=== PATIENT | male | born 1980 | race Caucasian/White ===

== ENCOUNTER 2024-10-11 13:34 | Day surgery (SDC) | payer BC, SELFPAY ==
[2024-10-11] VITALS (11 sets, daily range): BP systolic 122–159; BP diastolic 62–85; BMI 26.2
--- NOTE | 2024-10-11 08:53 | ED.GENMED ---
History of Present Illness
General
Chief Complaint: Chest Pain
Time Seen by Provider: 10/11/24 08:39
History of Present Illness
History of Present Illness:
Patient is a 44-year-old male with no reported chronic medical problems here today for evaluation of approximately 7 hours of sudden onset of epigastric abdominal discomfort that woke him up from his sleep this morning. Patient reports the pain
being moderate in nature. There is mild radiation along the bilateral upper quadrants. There is slight radiation into the lower aspect of the middle chest wall. No noted difficulty breathing/shortness of breath No lower abdominal pain. No
urinary symptoms. No back pain. No fevers. he has had vomiting x 2. No diarrhea. He denies excessive NSAID use. He does report a history of alcohol use with last drinking yesterday. He reports having 5 drinks in total. He does report
drinking approximately 4-5 times per week and drinks several beverages at a time. He has never had similar symptoms previously.
Review of Systems
Review of Systems
All Other Systems: ROS reviewed and negative except as documented in HPI and ROS
Phy Exam
Physical Exam
Physical Exam:
GENERAL: Alert , in no apparent distress
EYE: pupils equal and reactive
NECK: Supple
ENT: o/p clr, mmm.
CARDIAC: Regular rate and rhythm.
LUNGS: Clear breath sounds bilaterally, no acute respiratory distress, no wheezes/rales/rhonchi
ABDOMEN: Soft, there is significant tenderness along the epigastrium without rebound or guarding. There is no tenderness elsewhere. No overlying skin changes or ecchymosis.
NEUROLOGICAL: Alert and oriented, no focal neuro deficits
SKIN: Warm and dry, skin intact.
MUSCULOSKELETAL: No edema, well perfused.
PSYCH: Normal and appropriate interaction.
Scores
Heart Score for Chest Pain Patients
STEMI patient?: No
History: Slightly or Non-Suspicious
ECG: Normal
Age: </= 45 years
Risk Factors: No Risk Factors
Troponin: </= Normal Limit
Heart Score for Chest Pain Patients: 0
Heart Score Risk: 2.5% MACE over next 6 weeks
Course
Orders/Labs/Results
Orders:
Orders
10/11/24 08:10
Electrocardiogram (*1) Urgent
Reason for Study: Chest Pain
EKG- Treatment ONCE
10/11/24 08:56
CT Abd/pelvis W Iv Cont Urgent
Comment:
Reason For Exam: epigastric pain,vomiting
0.9% Sodium Chloride 1000 ml [Nss] 1,000 ml IV BOLUS
Famotidine [Pepcid] 20 mg IV NOW STA
Morphine Sulfate 4 mg IV NOW STA
Ondansetron Injectable [Zofran] 4 mg IV NOW STA
10/11/24 09:04
Complete Blood Count/With Diff Urgent
Comprehensive Metabolic Panel Urgent
Lipase Urgent
10/11/24 10:34
HYDROmorphone [Dilaudid] 1 mg IV NOW STA
10/11/24 10:40
Troponin I Urgent
10/11/24 11:33
Urinalysis Reflex To Culture Urgent
Date Specimen was Collected: 10/11/24
Time Specimen was Collected: 11:21
Comment: .
Urine Microscopic Reflex Cult Urgent
10/11/24 12:06
HYDROmorphone [Dilaudid] 1 mg IV NOW STA
Abnormal Lab Results
10/11/24 10/11/24
09:04 11:33
RBC 4.59 L 10^6/uL
(4.70-6.10)
MCV 94.3 H fL
(80.0-94.0)
MCH 32.7 H pg
(27.0-31.0)
Absolute Neuts (auto) 8.3 H 10^3/uL
(1.4-6.5)
Absolute Lymphs (auto) 0.6 L 10^3/uL
(1.2-3.4)
Neutrophils % 89.5 H %
(42.2-75.2)
Lymphocytes % 6.7 L %
(20.5-51.1)
Glucose 130 H mg/dl
(70-99)
Total Bilirubin 1.4 H mg/dl
(0.2-1.3)
Urine Bacteria (Reflex) Few A
(Negative)
Urine Albumin (Reflex) 1+ A
(Neg - Trace)
10/11/24 09:04
10/11/24 09:04
Vital Signs
Initial and Last Documented VS:
Initial Vital Signs
Pulse Resp BP Pulse Ox
52 16 159/85 99
10/11/24 08:07 10/11/24 08:07 10/11/24 08:07 10/11/24 08:07
Last Documented Vital Signs
Temp Pulse Resp BP Pulse Ox
98.9 F 46 20 133/73 99
10/11/24 10:44 10/11/24 12:15 10/11/24 11:19 10/11/24 12:00 10/11/24 10:44
MDM/Problems Addressed
Differential Diagnosis Includes:
Patient is a 44-year-old male with no reported chronic medical problems here today for evaluation of approximately 7 hours of sudden onset of epigastric abdominal discomfort. Overall, patient appears extremely uncomfortable. Vital signs remarkable
for an elevated blood pressure. Physical examination described above. Given symptoms/findings, will make patient NPO. Will provide IV fluids. Will order Zofran for nausea, Pepcid, and morphine. Will obtain screening labs, urinalysis, and a CT
scan of the abdomen and pelvis with IV contrast.
10/11/2024 1045: CT scan reveals findings concerning for a small bowel obstruction. Patient reassessed he is still in a significant amount of pain. Will provide IV Dilaudid 1 mg x 1. Patient made aware of CT findings. Will discuss with surgery.
NPO.
10/11/2024 1243: Radiology addendum reveals a questionable second transition point in the left upper quadrant suggesting possibility of closed-loop obstruction possibly related to internal hernia. General surgery, Dr. Del Valle, evaluated patient at
bedside. Plan for operative intervention. Will admit to general surgery. Patient stable at time of admission.
*Critical Care Note
Total Time (30-74mins, 75-104mins- exclusive of procedures): Not Applicable
ED Attending Note
-
Portions of this chart may have been created with voice recognition software.� Occasional wrong word or��sound alike� substitutions may have occurred due to the inherent limitations of voice recognition software.
Discharge Plan
Departure
Patient Disposition: Admit
Date of Disposition: 10/11/24
Time of Disposition: 12:39
Admit to: Med/Surg
Admit to doctor: Jean Del Valle
Presentation/result/management discussed w/ accepting MD/DO: General Surgery
Patient with high blood pressure during this ER visit?: Yes
Condition: Fair
Covid-19: Not Applicable
Discharge Problem:
Small bowel obstruction
Prescriptions:
No Action
Simvastatin
1 tab PO HS
Patient Comments:
10/11/24-no ecw or pharmacy records for this drug
Referrals:
Carlee Colon PA-C [Family Provider] -
Interventions
Interventions:
*Risk Screen - Suicide Last Done: 10/11/24 08:11
*Neglect/Abuse Screening Last Done: 10/11/24 08:11
ED- Cardiac Assessment Last Done: 10/11/24 12:17
Discharge Date and Time
Print Language: GHANAIAN
[2024-10-11] MEDS: MORPHINE SULFATE 4 MG IV (09:05)
[2024-10-11] MEDS: NSS 1000 IV (09:05)
[2024-10-11] MEDS: PEPCID 20 MG IV (09:05)
[2024-10-11] MEDS: ZOFRAN 4 MG IV (09:06)
[2024-10-11 09:31] LABS: % Basophils 0.2 % (0-2); % Immature Granulocytes 0.2 % (0-0.5); % Lymphocytes 6.7 % (20.5-51.1); % Monocytes 3.4 % (1.7-9.3); % Neutrophils 89.5 % (42.2-75.2); Absolute Lymphocytes 0.6 10^3/uL (1.2-3.4); Absolute Monocytes 0.3 10^3/uL (0.1-0.6); Absolute Neutrophils 8.3 10^3/uL (1.4-6.5); Hematocrit 43.3 % (39.0-52.0); Mean Corp Hgb Conc. 34.6 g/dL (33.0-37.0); Mean Corpuscular Hgb 32.7 pg (27.0-31.0); Mean Corpuscular Volume 94.3 fL (80.0-94.0); Mean Platelet Volume 9.6 fL (7.4-10.4); Nucleated Red Blood Cells % 0 % (-); Platelet Count 240 10^3/uL (130-400); Red Blood Cell Count 4.59 10^6/uL (4.70-6.10); Red Cell Dist. Width 11.9 % (11.5-14.5); White Blood Cell Count 9.2 10^3/uL (4.8-10.8)
[2024-10-11 09:48] LABS: ALT (SGPT) 34 U/L (0-50); AST (SGOT) 23 U/L (17-59); Albumin 4.9 g/dl (3.5-5.0); Alkaline Phosphatase 52 U/L (38-126); Blood Urea Nitrogen 19 mg/dl (9-20); Calcium 9.7 mg/dl (8.4-10.2); Carbon Dioxide 26 mmol/L (22-30); Chloride 103 mmol/L (98-107); Estimated Creatinine Clearance 111 ml/min; Glucose 130 mg/dl (70-99); Lipase 65 U/L (23-300); Potassium 4.3 mmol/L (3.5-5.1); Sodium 139 mmol/L (135-145); Total Bilirubin 1.4 mg/dl (0.2-1.3); Total Protein 7.4 g/dl (6.3-8.2); eGFR > 60.00
[2024-10-11] MEDS: DILAUDID 1 MG IV ×2 (10:41→12:20)
[2024-10-11 11:35] LABS: Troponin I < 0.012 ng/ml
[2024-10-11 11:53] LABS: Urine Albumin 1+ (Neg - Trace); Urine Bilirubin Negative (Negative); Urine Character Clear (Clear); Urine Color Yellow; Urine Glucose Negative (Negative); Urine Ketone Negative (Negative); Urine Leukocyte Negative (Negative); Urine Nitrite Negative (Negative); Urine Occult Blood Negative (Negative); Urine Urobilinogen Negative (Neg - 1+)
[2024-10-11 12:05] LABS: Urine Mucus Few
[2024-10-11 12:06] LABS: Urine Bacteria Few (Negative); Urine Red Blood Cell 0-2 /HPF (0-2)
--- NOTE | 2024-10-11 12:53 | HPS.HSE ---
Family Physician
-
Family Physician: Carlee Colon
Chief Complaint
-
Abdominal pain
History of Present Illness
This is a 44-year-old male with no significant past medical history who presents with several hours of sudden onset severe crampy abdominal pain in the epigastric area without nausea or vomiting. He underwent a CT scan here which demonstrated small
bowel obstruction with a rather abrupt transition point, on my read there is an additional transition point in the left upper quadrant concerning for a closed-loop bowel obstruction. There is no upstream dilation of the proximal small bowel or
stomach. The patient denies Fever, Chest Pain, Shortness Of Breath, Nausea, Vomiting, changes in urinary and bowel habits, unintentional weight loss at baseline.
He does have a family history of colon cancer but has not had a colonoscopy yet.
Medical History
Past Medical History
Past Medical History: Reports None
Past Surgical History: Reports None
Social History
Tobacco: Non-smoker
Alcohol: None
Drug: None
Personal: Partner
Family History
Family History: Not pertinent
Allergies / Home Medications
Allergies reflects when Allergies were last updated in [facility].
Home Medications with original date entered in [facility]
Allergy/Medication List:
He endorses itching from Percocet
Review of Systems
-
A 12 point ROS was completed and negative except as noted: Yes
Physical Exam
Vital Signs
Vital Signs
Temp Pulse Resp BP Pulse Ox
98.9 F 46 20 133/73 99
10/11/24 10:44 10/11/24 12:15 10/11/24 11:19 10/11/24 12:00 10/11/24 10:44
Physical Exam
General: Well Developed and Appears in Distress
HEENT: NormoCephalic
Respiratory: Non Labored Respirations
GI: Soft, Non Distended and Tender
Laboratory Results
-
10/11/24 09:04
10/11/24 09:04
Laboratory Results
Total Bilirubin 1.4 mg/dl (0.2-1.3) H 10/11/24 09:04
AST 23 U/L (17-59) 10/11/24 09:04
ALT 34 U/L (0-50) 10/11/24 09:04
Alkaline Phosphatase 52 U/L (38-126) 10/11/24 09:04
Troponin I < 0.012 ng/ml 10/11/24 10:40
Lipase 65 U/L (23-300) 10/11/24 09:04
Data Reviewed
-
CT Scan: Image Personally Visualized and interpreted, Report Reviewed by me, Discussed with Physician, Discussed with Patient and Discussed with Family
Lab Data: Labs Reviewed by me, Discussed with Physician and Discussed with Patient
Impression/Plan
-
IMPRESSION: This is a 44-year-old male who presents with sudden onset abdominal pain found to have an early small bowel obstruction versus closed-loop obstruction. Given the risk for the latter, will plan for diagnostic laparoscopy
PLAN:
Will plan for diagnostic laparoscopy today.
N.p.o., IV fluids
Ancef on-call to the OR.
Risks/Benefits/Alternatives, expected postoperative course and possible complications (bleeding, infection, injury to surrounding structures, acute/chronic pain) discussed at length. Patient wishes to proceed with surgery. All questions answered.
Consent obtained.
I spent 60 minutes in total for the care of this patient today including direct patient care and counseling, reviewing labs, imaging, coordination of care, as well as documentation.
--- NOTE | 2024-10-11 13:04 | W.SUR.PREOP ---
Pre-Operative Surgical Note
-
I have examined this patient prior to the performance of the scheduled procedure.
The patient's condition is unchanged from the time of the current History and
Physical and the patient is able to undergo the scheduled procedure.
--- NOTE | 2024-10-11 14:24 | W.IMMPOSTOP ---
Surgical Immed Post Op Note
-
Primary Surgeon: Jean Del Valle MD
Assisting Surgeon: None
Pre-op Diagnosis: Small bowel obstruction/closed-loop obstruction
Post-op Diagnosis: Same
Procedure Performed: Diagnostic laparoscopy, lysis of adhesions
Anesthesia Type: General
Specimen / Cultures: None
Estimated Blood Loss: 1 cc
Complications: None
Operative Findings: Initial left subcostal Veress entry aborted after 2 passes. An infraumbilical cutdown performed which demonstrated no violation of the inner lining of the peritoneum and air in the preperitoneal space. Two 5 mm ports were
placed on the right side and the bowel was run. A single adhesion from the omentum to the root of the mesentery was identified through which a loop of intestine had herniated through rozina to out internal hernia/closed-loop obstruction. This was
lysed using laparoscopic bipolar energy device freeing up the bowel. The bowel looked completely viable and was run proximally to the ligament of Treitz and then retrograde to the ligament of Treves without any other residual pathology.
POST OP PLAN:
Imaging: None
Labs: Routine AM
Diet: Clears, advance to regular diet tomorrow
Analgesia: Tylenol 650mg q6 Shelley, Mariela 5mg q6 PRN, Dilaudid 0.5mg q2h PRN
Neuro/vascular checks: q4h
AC/AP: Hold Therapeutic AC, Ok for DVT PPx
Activity: Ad Miley
Wound/Incisions/Drains: Routine
Abx: None
Dispo: RNF, anticipate discharge home tomorrow.
--- NOTE | 2024-10-11 15:34 | OR.RPT ---
Operative Report
Operative Report
Patient Name: Sae Simpson
: 1980
Date of Operation: 10/11/2024
Preoperative Diagnosis: SBO
Postoperative Diagnosis: Same
Procedure(s):
Diagnostic Laparoscopy, lysis of adhesions
Surgeon(s):
Dr. Del Valle
Distance Education Coordinator(s):
JAEL Carvajal
Anesthesia: General
Estimated Blood Loss: 1 cc
Urine Output: None
Drains/Lines/Implants: None
Specimens:
1. Small Bowel
HPI/Surgical Indications:
This is a 44-year-old male with no significant past medical history who presents with a 1 day history of worsening significant epigastric abdominal pain. A CT scan demonstrated closed-loop bowel obstruction. Risks/Benefits/Alternatives were
discussed at length, and the patient agreed to proceed with surgery.
Operative Findings: Initial left subcostal Veress entry aborted after 2 passes. An infraumbilical cutdown performed which demonstrated no violation of the inner lining of the peritoneum and air in the preperitoneal space. Two 5 mm ports were
placed on the right side and the bowel was run. A single adhesion from the omentum to the root of the mesentery was identified through which a loop of intestine had herniated through rozina to out internal hernia/closed-loop obstruction. This was
lysed using laparoscopic bipolar energy device freeing up the bowel. The bowel looked completely viable and was run proximally to the ligament of Treitz and then retrograde to the ligament of Treves without any other residual pathology.
Procedure Description:
The patient was brought to the Operating Room and placed in the supine position with the arms tucked. IV antibiotics were infused and Venodyne stockings placed. Following uneventful induction of general endotracheal anesthesia, an orogastric tube
were placed. The abdomen was prepped and draped in the usual sterile fashion. We initially tried to enter the abdomen using a subcostal Veress technique but after 2 passes we aborted. The abdomen was entered using a Juan technique with a 5 mm
trochar just below the umbilicus. Pneumoperitoneum to 15 mmHg pressure was obtained without difficulty and we confirmed that no injury had occurred during our entry. In fact, it appeared that the Veress needle had been too shallow and had
insufflated the preperitoneal space. We then placed two 5 mm trocars in the right upper and right lower quadrants. The bowel was run towards the ligament of Treitz and we immediately identified single adhesion from the omentum to the root of the
mesentery causing loop of bowel to herniate through rozina to an internal hernia/closed-loop obstruction. This was lysed using a laparoscopic bipolar energy device freeing up the bowel. The bowel completely viable and was run proximally to the
ligament of Treitz and then retrograde to the ligament of Treves without any other residual pathology. The bowel again looked completely viable. The umbilical port was closed with 0 PDS suture on a Vitor Tapia device. The remaining ports were
removed under direct visualization. The 5 mm ports were then closed with 4-0 Monocryl followed by glue. Overall, the patient tolerated the procedure well and was taken to the Recovery Room postoperatively in stable condition.
I was the attending physician and performed the procedure with assistance from the REHABILITATION COUNSELOR above. I was present for all portions of the case, excluding skin closure.
Jean Del Valle MD
[2024-10-11] MEDS: NORMOSOL-R/PLASMALYTE-A 1000 IV (16:46)
[2024-10-11] MEDS: TYLENOL 650 MG PO (16:54)
--- NOTE | 2024-10-11 17:06 | PTCARENOTE ---
Received patient from PACU around 1625 via bed in stable condition. Patient denies pain. 3 abdominal lap sites with surgical adhesive CDI. Denies n/v. Patient oriented to room. Call olguin in reach.
[2024-10-11] MEDS: TORADOL 10 MG IV (20:13)
[2024-10-12] MEDS: TYLENOL PO ×2 (01:00→06:40)
[2024-10-12] MEDS: TORADOL 10 MG IV ×2 (02:50→09:04)
[2024-10-12 02:59] VITALS: BP 115/59
[2024-10-12] MEDS: NORMOSOL-R/PLASMALYTE-A IV (04:55)
[2024-10-12 07:03] VITALS: BP 114/60
--- NOTE | 2024-10-12 07:48 | W.PN.GS2 ---
Today's Communication / Plan
-
-- Regular diet, education provided
-- DC today when tolerating diet
Assessment / Plan
-
Patient is a 44 yo M p/w adhesive SBO POD#1 s/p laparoscopic KALLIE
Recovering well. No postoperative concerns.
-- Regular diet, education provided
-- HLIV
-- Pain control: Tylenol, Toradol
-- Home statin
-- DC today when tolerating diet
Subjective Data
-
Date of Service: October 12, 2024
No complaints. Pain well-controlled. No nausea or vomiting or increased abdominal distention. Tolerated minimal clears yesterday evening. Passing flatus, no BM. Ambulating. Voiding.
Objective Data
-
Intake and Output
10/11/24 10/12/24 10/13/24
06:59 06:59 06:59
Intake Total 720 / 720
Output Total 800 / 800
Balance -80 / -80
Intake:
Oral fluids 720 / 720
Output:
Urine, Voided 800 / 800
Other:
Number of approximated MODERATE 2
amounts of urine
Vital Signs
Temp Pulse Resp BP Pulse Ox
98 F 58 16 115/59 94
10/12/24 02:59 10/12/24 02:59 10/12/24 02:59 10/12/24 02:59 10/12/24 02:59
Lab Results
10/11/24 09:04
10/11/24 09:04
Calcium 9.7 mg/dl (8.4-10.2) 10/11/24 09:04
Total Bilirubin 1.4 mg/dl (0.2-1.3) H 10/11/24 09:04
AST 23 U/L (17-59) 10/11/24 09:04
ALT 34 U/L (0-50) 10/11/24 09:04
Alkaline Phosphatase 52 U/L (38-126) 10/11/24 09:04
Total Protein 7.4 g/dl (6.3-8.2) 10/11/24 09:04
Albumin 4.9 g/dl (3.5-5.0) 10/11/24 09:04
Physical Exam
-
Gen: NAD
Abd: soft, NT, ND, non-peritoneal, incisions c/d/i - no erythema, ecchymosis or drainage
Patient has a potter catheter: No
Patient has a central line: No
--- NOTE | 2024-10-12 10:48 | CM ---
Met with pt at bedside
Pt reports he lives in a 3 story home with his fiance; 2 steps to enter, 14 steps to bedroom
Independent at baseline, employed, drives
DME - none
HH - no past hx
Has ride at discharge
PCP - [facility]
Pharm - [facility]
Plan - anticipate home no needs
[2024-10-12 11:00] VITALS: BP 127/76
== END 2024-10-12 12:30 | disposition home or self-care (01) ==
LOC: PACU 13:34
PROVIDERS: Physician Assistant; ATTENDING PHYSICIAN Surgery; EMERGENCY PHYSICIAN Emergency Medicine; FAMILY PHYSICIAN Physician Assistant
PROC: 0DN84ZZ Release Small Intestine, Percutaneous Endoscopic Approach (ICD-10-PCS; 2024-10-11)
DX: K46.0 Unspecified abdominal hernia with obstruction, without gangrene (principal); K56.50 Intestinal adhesions [bands], unspecified as to partial versus complete obstruction; Z80.0 Family history of malignant neoplasm of digestive organs
CPT/HCPCS: 44180; 74177; 80053; 81003; 81015; 83690; 84484; 85025; 93005; 96361; 96374; 96375; 96376; 99285; C1776; Q9967